=== PATIENT | male | born 2000 | race Two or more races ===

== ENCOUNTER 2021-03-28 09:04 | Outpatient (CLI) | payer OTHER ==
[2021-03-28 09:56] VITALS: BP 139/94
--- NOTE | 2021-03-28 09:56 | SLEEP CARE CONSULTATION ---
Information from patient questionnaire entered by Manny Guevara MA. I have reviewed and concur with the information entered by Manny Guevara MA. This document represents the service I personally performed and the decisions made by me, Wendy Burton ARNP. History of Present Illness Service Date and Time: 03/28/2021 0904 Reason for Visit: New patient Chief Complaint: reports: Insomnia, Unrefreshed sleep, Snoring, Fatigue, Frequent awakenings at night Date of Onset: 3 YEARS Usual bedtime: 2100 Time it takes to fall asleep: 1 HOUR Snores at night: Yes Observed to quit breathing while asleep: No Sleeps alone due to snoring: No Number of times waking at night: 4 - 5 Reasons for waking at night: reports: Snoring, Pain, Bathroom, Other (UNKNOWN) Toss, Turn, or Twitch while sleeping: Yes Recalls having dreams: No Usually gets out of bed at: 0500 Feels refreshed in the morning: No Morning headache: Yes (2-3 times a week and last about 20 minutes) Sleepy or fatigued during the day: Yes Ever fallen asleep while driving: No (he doesn't have a license right now, no driving) Takes day naps: No Dreams during day naps: No Prior sleep studies: No Additional HPI information: I had the pleasure of seeing VISHAL DOWNEY today regarding the possibility of him having a sleep disorder. His current complaints are fatigue, frequent night awakenings, insomnia (hard to go to sleep) and unrefreshed sleep. He also snores and has woken himself up from his snoring. He has not been told that he stops breathing during the night. He states it takes 30 minutes-1 hour to go to sleep on average. He can get back to sleep if he wakes up during the night but timing varies. His sleeping issues started 3 years ago and this coincides with him starting with the [employer]. He states he will lay down around 9 PM but not fall asleep for about an hour. He wakes up 4-5 times a night and can fall back to sleep, sometimes it takes a little bit. He wakes up 2-3 times a week with headaches that resolve in about 20 minutes. He does not usually wake up feeling rested in the morning. - Parasomnia Symptoms Ever been unable to move upon waking from sleep: No Walks in sleep: Yes (getting up to bathroom, still asleep) Talks in sleep: Yes Ever acted out dreams in sleep: No Ever felt weak in the knees when startled or emotional: Yes (has not fallen to the ground) Bothered by creepy, crawly, restless sensations in legs: Yes (happens during day when it is quiet and he is alone) Problems with memory or concentration: Yes (concentration) Subjective Initial [place] Sleepiness Scale score: 12 (2020) Past Medical History Past Medical History: reports: Other (Sickle cell trait (no treatment at this time)) Social History The patient's occupation is a [employer]. Patient is Single and lives in . Have you smoked in the past 12 months: Yes Cigarettes per day (20/pack): 20 Years of smokin Smoking Pack Years: 4.0 Alcohol use: Yes Alcohol amount and frequency: 6 drinks a WEEK, only on weekends Caffeine use: Yes Caffeine amount and frequency: 3 drinks X DAILY Family History Family history of sleep disordered breathing: No Family Hx Sleep Apnea: Mother: Snoring, Father: Snoring, Sibling: Snoring Allergies and Home Medications Drug allergies reviewed: Yes (NKDA) Home medication list reviewed: Yes (no daily medications or supplements) Review of Systems Weight gain over past 5 years: 30 (over last year and then losing it again in same year) Weight loss over past 5 years: 30 Cardiovascular: denies: high blood pressure Gastrointestinal: denies: heartburn Neurological: denies: headaches Psychiatric: denies: Attention Deficit Hyperactivity, anxiety, depression, mood disorder Ear/Nose/Throat: denies: injury to nose, tonsillectomy, wisdom teeth removed Endocrine: denies: thyroid disease Musculoskeletal: reports: back pain Immunologic: reports: allergies to food or environment (pollen) Physical Exam Vital signs obtained and entered by: QUINTEN HWANG Blood Pressure: 139/94 (right) Cuff size: wrist Heart Rate: 88 O2 Saturation: 98 (with masks) Height: 6 ft 1 in Weight: 185 lb (with boots) Body Mass Index: 24.4 BMI Classification: Healthy weight Neck circumference: 16 (inches) Nostrils: patent to airflow Mouth and throat: narrow oropharynx Soft palate: long Hard palate: normal Uvula: normal Uvula visualization: 50% Mallampati Class II Tongue: enlarged in size with teeth p[place] on lateral edges Tonsils: 1+ Chin and jaw: normal size and position Neck: normal w/o lymphadenopathy or thyromegaly Heart: regular rate and rhythm Lungs: clear bilaterally Impression and Plan 1. Suspected Obstructive Sleep Apnea-Hypopnea Syndrome, as suggested by a history of loud and irregular snoring, morning headache, frequent awakening during the night, unrefreshed sleep, cognitive impairment, and excessive daytime sleepiness. Narrow oropharynx and obesity are common predisposing factors for obstructive sleep apnea-hypopnea syndrome. I recommend proceeding to polysomnography to confirm the diagnosis and to assess severity. If the patient has significant sleep disordered breathing, a manual CPAP titration study will also be performed to find the optimal treatment pressure. I informed the patient of what the sleep studies involve and after some discussion, obtained agreement to proceed. The pathophysiology of obstructive sleep apnea-hypopnea syndrome was discussed with the patient and health risks of cardiovascular and cerebrovascular disease if not treated. Risks of drowsy driving discussed in detail and patient advised to avoid long distance driving and to tack puller at the first sign of drowsiness. Patient agreed to plan. * Schedule polysomnography +- manual CPAP titration study and return in 1-2 weeks after the study to discuss result and initiate therapy. * Avoid alcohol, sedative and muscle relaxant around bedtime. * Maintain a healthy weight. * Review instructions provided by trained office staff on how to prepare for the sleep study. * Return for follow-up after sleep study completed. Counseling Topics: Weight control Visit Type: In Office Time Spent with Patient (minutes): 30 Provider Statement: I spent 100% of the Face to Face Visit with the patient with greater than 50% spent counseling the patient and coordination of care.
== END 2021-03-28 09:05 | disposition home or self-care (01) ==
LOC: SC 09:04
PROVIDERS: ATTEND Nurse Practitioner Family
DX: R06.83 Snoring (principal); R51.9 Headache, unspecified; G47.8 Other sleep disorders; R41.89 Other symptoms and signs involving cognitive functions and awareness; G47.10 Hypersomnia, unspecified; F17.200 Nicotine dependence, unspecified, uncomplicated
CPT/HCPCS: 99203; 99212

== ENCOUNTER 2021-04-05 09:11 | Outpatient (CLI) | payer OTHER | END 2021-04-05 09:12 | disposition home or self-care (01) | LOC: SC 09:11 | PROVIDERS: ATTEND Nurse Practitioner Family | DX: G47.33 Obstructive sleep apnea (adult) (pediatric) (principal); R09.02 Hypoxemia | CPT/HCPCS: 95806 ==

== ENCOUNTER 2021-04-19 16:02 | Outpatient (CLI) | payer OTHER ==
[2021-04-19 16:33] VITALS: BP 132/79
--- NOTE | 2021-04-19 16:33 | SLEEP CARE CONSULTATION ---
Information from patient questionnaire entered by Manny Guevara MA. I have reviewed and concur with the information entered by Manny Guevara MA. This document represents the service I personally performed and the decisions made by , Wendy Burton ARNP. History of Present Illness Service Date and Time: 04/19/2021 1602 Initial [place] Sleepiness Scale score: 12 (2020) Current [place] Sleepiness Scale score: 13 (2021) Additional HPI information: VISHAL DOWNEY returns for follow up and results of the recently performed home sleep study. I explained the pathophysiology behind obstructive sleep apnea. We then spent quite a bit of time discussing different treatment options. For mild obstructive sleep apnea, surgery and oral appliance are alternatives to nasal CPAP therapy but in moderate or severe cases, nasal CPAP is the most effective and reliable treatment. Because apnea is primarily in supine position, then positional management therapy could be effective. Methods discussed such as positioning with pillows, using a T-shirt with tennis balls in the back, and shown commercial products that have a pillow format on back to prevent supine sleep. I reviewed the impact of weight changes on sleep apnea. I explained how CPAP machine works and what to expect when using the machine. Patient counseled not drink alcohol less than 4 hours before bedtime as it can increase snoring and apnea. Patient was cautioned about risks of drowsy driving until sleepiness symptoms resolve. Patient denies drowsy driving. Sleep Study - Results Prior sleep studies: No Polysomnography/Home Sleep Study results: Physician Impression: The quality of the study is good. The length of the study is adequate (> 240 minutes). Please also see the tabulated and graphic data. 1. Obstructive Sleep Apnea-Hypopnea (ICD-10 G47.33), mild, with an AHI of 5.2/hr and geena SaO2 of 88%. During the study, the patient had 26 apneas (26 obstructive, 0 central, 0 mixed) and 11 hypopneas. The longest episode lasted 96.5 seconds. The respiratory events occurred almost exclusively during supine sleep (supine AHI was 8.8 and non-supine, 1.21). 2. Hypoxemia (ICD-10 R09.02), minimal, with the lowest oxygen saturation of 88 % and 0.2 minutes with SaO2 under 90%. Baseline oxygen saturation was normal (Average oxygen saturation was 96%). Allergies and Home Medications Home medication list reviewed: Yes (no changes) Review of Systems Review of systems same as previous: Yes (no changes) Physical Exam Vital signs obtained and entered by: QUINTEN Zee Blood Pressure: 132/79 (RIGHT ) Cuff size: wrist Heart Rate: 78 O2 Saturation: 97 (CLOTH MASK) Height: 6 ft 1 in Weight: 189 lb Body Mass Index: 24.9 BMI Classification: Healthy weight Impression and Plan 1. Obstructive Sleep Apnea-Hypopnea Syndrome, mild, with lowest oxygen saturation of 88%. Obviously this is the cause of the patients symptoms of unrefreshed sleep, and excessive daytime sleepiness. Since patients apnea is primarily in supine position, patient advised to try positional therapy and agreed with plan. He is also advised to lose weight as this will reduce snoring and apnea. An oral appliance can also be used for snoring but often is not covered by insurance. Follow up is scheduled for one month to check effectiveness and compliance with therapy. * Positional therapy * Maintain healthy weight. * Avoid alcohol consumption near bedtime. * Avoid supine sleep. * Return in one month I will assess response to therapy and compliance at that time. Counseling Topics: Sleeping position (for positional therapy), Weight control Follow up with Sleep Care in: 1-2 months Visit Type: In Office Time Spent with Patient (minutes): 12 Provider Statement: I spent 100% of the Face to Face Visit with the patient with greater than 50% spent counseling the patient and coordination of care.
== END 2021-04-19 16:03 | disposition home or self-care (01) ==
LOC: SC 16:02
PROVIDERS: ATTEND Nurse Practitioner Family
DX: G47.33 Obstructive sleep apnea (adult) (pediatric) (principal)
CPT/HCPCS: 99212